=== PATIENT | female | born 1990 | race Caucasian/White ===

== ENCOUNTER 2016-12-16 20:57 | Emergency (ER) | payer OTHER ==
[~2016-12-16] VITALS: Ht 157.5 cm; Wt 98.0 kg
[2016-12-17 00:16] VITALS: BP 120/68
== END 2016-12-17 00:16 | disposition home or self-care (01) ==
LOC: ED 20:57
DX: J02.9 Acute pharyngitis, unspecified (principal); J03.90 Acute tonsillitis, unspecified
CPT/HCPCS: J0696; J1100